=== PATIENT | female | born 1995 ===

== ENCOUNTER 2020-08-16 13:20 | Outpatient (CLI) | payer OTHER ==
--- NOTE | 2020-08-16 14:34 | ULT ---
US Thyroid STANDARD: 08/16/2020 1:26 PM CLINICAL INDICATION: Thyroid nodule. COMPARISON: None. FINDINGS: The right thyroid lobe measures 5.6 cm and the left thyroid lobe measures 3.8cm. Scattered cysts and nodules are seen in both thyroid lobes. The largest nodule seen in the right uppe r lobe and has both solid and cystic features. This nodule is well-circumscribed without suspicious calcifications and measures 1.9 cm in greatest dimension. No cervical lymphadenopathy is noted. IMPRESSION: Multinodular thyroid TIRADS category 3 ; a follow-up ultrasound in one years, 3 years, and 5 years is recommended to ensur e stability.
== END 2020-08-16 13:21 | disposition home or self-care (01) ==
LOC: SCSULT 13:20
PROVIDERS: ATTEND Family Medicine
DX: E04.2 Nontoxic multinodular goiter (principal)
CPT/HCPCS: 76536